=== PATIENT | female | born 1980 | race Caucasian/White ===

== ENCOUNTER 2020-12-21 06:05 | Day surgery (SDC) | payer OTHER ==
[~2020-12-21 06:05] MED LIST: Acetaminophen 325 MG Tab PO SCH; EPINEPHrine 1 MG/ML 30 ML MDV IRR SCH; Lidocaine 1%/Sod Bicarbonate in NS 8.4% 1 ML Syringe IDERM PRN; Pregabalin 25 MG Cap PO SCH; Sodium Chloride 0.9% 10 ML Syringe FLUSH PRN; oxyCODONE ER 10 MG TAB.ER PO SCH
[2020-12-21] MEDS ORDERED: Bupivacaine 0.25% 10 ML SDV ONE (06:24)
[2020-12-21] MEDS: Lactated Ringers 1,000 ML IV SCH ×2 (06:30→10:31)
[2020-12-21] MEDS ORDERED: Midazolam 1 MG/ML 2 ML SDV ONE (07:24)
[2020-12-21] MEDS ORDERED: fentaNYL 100 MCG/2 ML SDV ONE (07:24)
[2020-12-21] MEDS ORDERED: Propofol 200 MG/20 ML SDV ONE ×4 (07:24→09:25)
[2020-12-21] MEDS ORDERED: ceFAZolin 1 GM Vial ONE (07:42)
[2020-12-21] MEDS ORDERED: Lactated Ringers 1,000 ML ONE (07:59)
[2020-12-21] MEDS ORDERED: ePHEDrine 50 MG/ML SDV ONE (08:17)
--- NOTE | 2020-12-21 08:37 | PCM.PREANE ---
Preanesthetic Assessment - Procedure Proposed Procedure: Right hip arthroscopy - Anesthesia/Transfusion/Family Hx Anesthesia History: Prior Anesthesia Without Reaction Transfusion History: No Prior Transfusion(s) - Review of Systems General: No Symptoms Pulmonary: No Symptoms Cardiovascular: No Symptoms Gastrointestinal: No Symptoms Neurological: No Symptoms Other: Reports: None - Physical Assessment NPO Status Date: 12/20/20 NPO Status Time: 21:00 Vital Signs: Last Vital Signs Temp 98.0 F 12/21/20 06:10 Pulse 74 12/21/20 06:10 Resp 16 12/21/20 06:10 BP 110/69 12/21/20 06:10 Pulse Ox 97 12/21/20 06:10 Height: 1.6 m Weight: 71.668 kg ASA Class: 1 Mental Status: Alert & Oriented x3 Airway Class: Mallampati = 2 Dentition: Reports: Normal Dentition Thyro-Mental Finger Breadths: 3 Mouth Opening Finger Breadths: 3 ROM/Head Extension: Full Lungs: Clear to Auscultation, Normal Respiratory Effort Cardiovascular: Regular Rate, Regular Rhythm - Lab Values: Laboratory Last Values Urine HCG, Qual Negative (NEGATIVE) 12/21/20 06:05 MRSA (PCR) Negative 12/14/20 13:27 - Allergies Allergies/Adverse Reactions: Allergies Allergy/AdvReac Type Severity Reaction Status Date / Time No Known Drug Allergies Allergy N/A Verified 12/20/20 14:46 - Acknowledgements Anesthesia Type Planned: General Anesthesia, Spinal Pt an Appropriate Candidate for the Planned Anesthesia: Yes Alternatives and Risks of Anesthesia Discussed w Pt/Guardian: Yes Pt/Guardian Understands and Agrees with Anesthesia Plan: Yes PreAnesthesia Questionnaire HEENT History: Reports: Other (See Below) Other HEENT History: wears contacts Cardiovascular History: Reports: None Respiratory History: Reports: None Gastrointestinal History: Reports: None Genitourinary History: Reports: None 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 Musculoskeletal History: Reports: Other (See Below) Other Musculoskeletal History: right hip pain Neurological History: Reports: None Psychiatric History: Reports: None Endocrine/Metabolic History: Reports: None Hematologic History: Reports: None Immunologic History: Reports: None Oncologic (Cancer) History: Reports: None Dermatologic History: Reports: None - Infectious Disease History Infectious Disease History: Reports: Novel Coronavirus - Past Surgical History Head Surgeries/Procedures: Reports: None Cardiovascular Surgical History: Reports: None Respiratory Surgical History: Reports: None GI Surgical History: Reports: Cholecystectomy Female Surgical History: Reports: None Male Surgical History: Reports: None Endocrine Surgical History: Reports: None Neurological Surgical History: Reports: None Musculoskeletal Surgical History: Reports: None Oncologic Surgical History: Reports: None Dermatological Surgical History: Reports: None - SUBSTANCE USE Tobacco Use Status *Q: Never Tobacco User Recreational Drug Use History: No - HOME MEDS Home Medications: Home Meds Norethindrone 0.35 mg PO DAILY 12/20/20 [History] Aspirin [Aspirin EC] 325 mg PO BID #84 tab 12/21/20 [Rx] Cyclobenzaprine [Flexeril] 10 mg PO BID PRN #20 tab 12/21/20 [Rx] oxyCODONE 5 - 10 mg PO Q4H PRN #30 tab 12/21/20 [Rx] - CURRENT (IN HOUSE) MEDS Current Meds: Current Medications Acetaminophen (Tylenol) 975 mg PO ONETIME BERNADETTE Stop: 12/21/20 16:00 Last Admin: 12/21/20 06:36 Dose: 975 mg Documented by: Epinephrine HCl (Adrenalin) 3 mg IRR ONETIME BERNADETTE Stop: 12/21/20 23:00 Lactated Ringer's (Ringers, Lactated) 1,000 mls @ 125 mls/hr IV ASDIRECTED BERNADETTE Stop: 12/21/20 23:00 Last Admin: 12/21/20 06:30 Dose: 125 mls/hr Documented by: Lidocaine/Sodium Bicarbonate (Buffered Lidocaine 1% In Ns 8.4%) 0.25 ml IDERM ONETIME PRN PRN Reason: Prior to IV Start Stop: 12/21/20 18:00 Last Admin: 12/21/20 06:29 Dose: 0.25 ml Documented by: Oxycodone HCl (Oxycontin) 10 mg PO ONETIME BERNADETTE Stop: 12/21/20 16:00 Last Admin: 12/21/20 06:37 Dose: 10 mg Documented by: Pregabalin (Lyrica) 50 mg PO ONETIME BERNADETTE Stop: 12/21/20 16:00 Last Admin: 12/21/20 06:37 Dose: 50 mg Documented by: Sodium Chloride (Saline Flush) 10 ml FLUSH ASDIRECTED PRN PRN Reason: Keep Vein Open Stop: 12/21/20 18:00 Discontinued Medications Bupivacaine HCl (Sensorcaine-Mpf 0.25%) Confirm Administered Dose 30 ml .ROUTE .STK-MED ONE Stop: 12/21/20 06:25 Cefazolin Sodium (Ancef) Confirm Administered Dose 2 gm .ROUTE .STK-MED ONE Stop: 12/21/20 07:43 Ephedrine Sulfate (Ephedrine Sulfate) Confirm Administered Dose 50 mg .ROUTE .ST-MED ONE Stop: 12/21/20 08:18 Fentanyl (Sublimaze) Confirm Administered Dose 100 mcg .ROUTE .ST-MED ONE Stop: 12/21/20 07:25 Lactated Ringer's (Ringers, Lactated) Confirm Administered Dose 1,000 mls @ as directed .ROUTE .[facility]-MED ONE Stop: 12/21/20 08:00 Midazolam HCl (Versed 1 Mg/Ml) Confirm Administered Dose 2 mg .ROUTE .ST-MED ONE Stop: 12/21/20 07:25 Miscellaneous Medication (Phenylephrine 1 Mg/10 Ml-Ns) Confirm Administered Dose 1 mg .ROUTE .ST-MED ONE Stop: 12/21/20 07:58 Propofol (Diprivan 20 Ml) Confirm Administered Dose 200 mg .ROUTE .STK-MED ONE Stop: 12/21/20 07:25 Propofol (Diprivan 20 Ml) Confirm Administered Dose 200 mg .ROUTE .STK-MED ONE Stop: 12/21/20 07:26 Propofol (Diprivan 20 Ml) Confirm Administered Dose 200 mg .ROUTE .STK-MED ONE Stop: 12/21/20 07:46
[2020-12-21] MEDS ORDERED: Ketorolac 30 MG/ML SDV ONE (10:06)
[2020-12-21] MEDS ORDERED: HYDROmorphone 0.5 MG/0.5 ML Syringe IVPUSH PRN (10:20)
--- NOTE | 2020-12-21 10:27 | PCM.POSTAN ---
POST ANESTHESIA ASSESSMENT - MENTAL STATUS Mental Status: Alert, Oriented - VITAL SIGNS Vital Signs: Last Vital Signs Temp 97.5 F 12/21/20 10:20 Pulse 78 12/21/20 10:20 Resp 22 H 12/21/20 10:20 BP 103/59 L 12/21/20 10:20 Pulse Ox 94 L 12/21/20 10:20 - RESPIRATORY Respiratory Status: Respiratory Rate WNL, Airway Patent, O2 Saturation Stable - CARDIOVASCULAR CV Status: Pulse Rate WNL, Blood Pressure Stable - GASTROINTESTINAL GI Status: No Symptoms - PAIN Pain Score: 4 - POST OP HYDRATION Hydration Status: Adequate & Stable
[2020-12-21] MEDS: fentaNYL 100 MCG/2 ML SDV IVPUSH PRN ×2 (10:29→10:59)
[2020-12-21] MEDS ORDERED: oxyCODONE 5 MG Tab PO PRN (10:40)
[2020-12-21] MEDS ORDERED: Cyclobenzaprine 10 MG Tab PO SCH (10:40)
--- NOTE | 2020-12-21 11:23 | PCM48HPAN ---
Post Anesthesia Note - EVALUATION WITHIN 48HRS OF ANESTHETIC Vital Signs in Normal Range: Yes Patient Participated in Evaluation: Yes Respiratory Function Stable: Yes Airway Patent: Yes Cardiovascular Function Stable: Yes Hydration Status Stable: Yes Pain Control Satisfactory: Yes Nausea and Vomiting Control Satisfactory: Yes Mental Status Recovered: Yes Vital Signs: Last Vital Signs Temp 97.5 F 12/21/20 11:10 Pulse 76 12/21/20 11:10 Resp 18 12/21/20 11:10 BP 107/88 12/21/20 11:10 Pulse Ox 99 12/21/20 11:10 - COMMENTS/OBSERVATIONS Free Text/Narrative:: Preparing for discharge home
--- NOTE | 2020-12-21 11:23 | CR ---
Right hip: Multiple fluoroscopic spot views were obtained in AP projection of the right hip utilizing C-arm device. Study shows findings compatible with right hip arthroscopic surgery. Fluoroscopy time is given as 71.7 seconds. Impression: 1. Procedural study as noted above. Diagnostic code #2
--- NOTE | 2020-12-21 11:57 | PCM.OPNOTE ---
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
--- NOTE | 2021-01-04 08:01 | OR ---
DATE OF OPERATION: 12/21/2020 SURGEON: Abel Suazo MD OPERATION PERFORMED: Right hip video arthroscopy with acetabuloplasty, labral repair and femoroplasty. 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 POSTOPERATIVE DIAGNOSIS: Right hip femoroacetabular impingement with labral tear. ANESTHESIA: Local MAC with spinal. ANESTHESIOLOGIST: Maurice Barbour. PROGRAM STRATEGIST: Christine Ramey PA-C ESTIMATED BLOOD LOSS: Less than 5 mL. COMPLICATIONS: None. CONDITION: Stable. DESCRIPTION OF PROCEDURE: The patient was identified in the preoperative holding area. Proper site was marked and identified by the surgeon. The patient was taken back to the operating theater where after adequate anesthesia, the patient was placed on the traction table, PEG was then placed and well padded. Left lower extremity was placed in a traction boot. No traction was applied and was placed in a dependent position. Right lower extremity was placed in a traction boot and gross traction was applied. Right hip was then sterilely prepped and draped in the usual sterile fashion. OR time-out was performed. The patient received 2 g IV Ancef, 5 pounds of fine traction was applied and was found to have enough distention of the joint. A longer spinal needle was then used for creation of the lateral portal. The Nitinol wire was then placed. Incision was made and the dilator was placed and then the lateral portal was placed. It was found to be in adequate position. With the use of a spinal needle with the anterior lateral portal, accessory portal was then placed and again it was done in a similar fashion as the lateral portal. The normal saline was then turned on and the pump was turned on. The patient was noted to have a tear at the anterior margin of the acetabulum with significant erythema. She had no signs of cartilaginous defects, but she did have significant delamination of her cartilage from the 1 o'clock position all the way around to roughly 9 o'clock position, with significant delamination of the cartilage. At this time, the patient was going to be in need of a labral repair secondary to the tear. I was able to resect some of the capsule from the anterior portion of the acetabulum all the way to the lateral portion of the acetabulum and do a peel down of the tear region as well as the delamination region. An acetabuloplasty with a jamila was then performed back to a stable rim. C-arm fluoroscopy was utilized during this procedure to make sure that it was brought back to an acceptable level. Once I had a good resection of the anterior and lateral acetabulum, I started placing [place] knotless anchors from medially up to laterally. I placed in all 5 anchors which had good adequate watertight repair of the labrum with good bumper affect. Once this was completed, fine traction was removed. Attention was turned to the femur. I did not have to take the capsule all the way down secondary to the femur just having a small area of bony protrusion near the head and neck junction. Using a full-radius jamila, I was able then to resect the bony prominence near the head and neck region back to a stable rim. Once this was completed, excess saline was drained. 3-0 nylon suture was used for closure of the portal incisions. The patient had a sterile soft dressing applied. I did do a block of the lateral femoral cutaneous nerve with 0.25% Marcaine. The patient was sent to the PACU in stable condition. MMODAL /[id number]
== END 2020-12-21 13:38 | disposition home or self-care (01) ==
LOC: JD.SDS 06:05
PROVIDERS: ATTEND Orthopaedic Surgery
DX: M25.851 Other specified joint disorders, right hip (principal); S73.101A Unspecified sprain of right hip, initial encounter; Z98.890 Other specified postprocedural states
CPT/HCPCS: 29914; 29915; 76000; 81025; 87641; A9270; C1713; C1776; J0171; J0690; J1170; J1885; J2250; J2370; J2704; J3010; J3490; J7120; 01202

== ENCOUNTER 2023-01-31 20:12 | Emergency (ER) | payer BC, OTHER ==
[2023-01-31] MEDS ORDERED: Ondansetron 4 MG Tab.DIS PO ONE (21:36)
== END 2023-01-31 23:00 | disposition home or self-care (01) ==
LOC: JD.ED 20:12
DX: S06.0X0A Concussion without loss of consciousness, initial encounter (principal); W01.198A Fall on same level from slipping, tripping and stumbling with subsequent striking against other object, initial encounter; Y92.59 Other trade areas as the place of occurrence of the external cause
CPT/HCPCS: 70450; 99283; A9270